=== PATIENT | male | born 1975 | race Hispanic/Latino ===

== ENCOUNTER 2019-09-19 18:32 | Emergency (ER) | payer BC ==
[2019-09-19 19:19] LABS: Urine Blood TRACE (NEG); Urine Glucose NEGATIVE (NEG); Urine Protein NEGATIVE (NEG)
[2019-09-19] MEDS ORDERED: NA CHLORIDE 0.9% 500 ML ONE (19:20)
[2019-09-19 20:19] LABS: Absolute Lymphocytes (CBC) 1.3 K/uL (0.7-4.9); Albumin 3.5 g/dL (3.4-5.0); Basophils % 0.4 % (0-1.3); Bilirubin Direct 0.1 mg/dL (0-0.2); Bilirubin Total 0.5 mg/dL (0.2-1.0); Hematocrit 39.8 % (39.6-49.0); Lymphocytes % 14.4 % (15.3-44.8); MPV 7.3 fL (7.6-11.3); Potassium 3.6 mmol/L (3.5-5.1); Protein, Total 7.9 g/dL (6.4-8.2); RBC Red Blood Cell Count 4.88 M/uL (4.33-5.43)
--- NOTE | 2019-09-19 20:52 | RAD REPORT ---
EXAM DESCRIPTION: CT - Abdomen Pelvis Wo Contrast - 09/19/2019 8:37 pm CLINICAL HISTORY: ABD PAIN , left-sided abdominal pain, left flank pain COMPARISON: No comparisons TECHNIQUE: Axial [address] imaging of the abdomen and pelvis was performed without IV contrast. No IV contrast was given because of allergy, abnormal renal function, patient refusal or physician re quest. No oral contrast administered. All CT scans are performed using dose optimization technique as appropriate and may include automated exposure control or mA/KV adjustment according to patient size. FINDINGS: No suspicious findings in the lung bases. Fatty infiltration is present throughout the liver. Liver size is upper normal. No focal liver lesion s seen. Spleen and pancreas show no suspicious findings. A 2.8 centimeter gallstone is present within a partially contracted gallbladder. No biliary tree dilatation. No right-sided hydronephrosis or right-sided calculus. Patient has mild left-sided hydronephrosis adilene n to the UVJ level. There are no obstructing or nonobstructing calculi identifiable. Left kidney is s lightly edematous when compared with the right. No significant adrenal finding. Isodense renal daysi s and pyelonephritis cannot be excluded in the absence of IV contrast. Urinary bladder is mostly cont racted limiting detail. No bladder calculus seen. There is subtle fullness or thickening of the bladd er wall near the UVJ. This could be bladder wall edema. , small sandlike stone would be possible. A s mall mass or ureterocele could be isodense on a noncontrast study. No dilated bowel loops or bowel wall thickening. No free air, free fluid or inflammatory stranding. No hernia, mass or bulky lymphadenopathy. No suspicious bony findings. IMPRESSION: Mild left-sided hydronephrosis is present without a clearly identifiable obstructing kylie culus. There is subtle fullness of the bladder wall at the UVJ. This could be wall edema from a recently pas sed stone. Patient could have a small sandlike stone in this region. Ureterocele or bladder mass parminder ot be excluded. Full assessment is limited is the absence of IV contrast. No abnormality of the right kidney or right collecting system. No acute GI finding. Fatty infiltration of the liver. Incidental cholelithiasis.
--- NOTE | 2019-09-19 21:18 | ER ---
Nurse's Notes [facility] Name: Rashid Ramos Age: 44 yrs Sex: Male : 1975 Arrival Date: 09/19/2019 Time: 18:38 Bed 15 Private MD: Diagnosis: Abdominal and pelvic pain Presentation: 09/18 18:53 Chief complaint: Patient states: L sided abd pain that radiates towards L flank x 2 ss days with nausea. Coronavirus screen: The patient has NOT traveled to a country currently being monitored by the [facility] within the last 14 days. Proceed with normal triage procedures. Ebola Screen: Patient denies exposure to infectious person. Patient denies travel to an Ebola-affected area in the 21 days before illness onset. Initial Sepsis Screen: Does the patient meet any 2 criteria? No. Patient's initial sepsis screen is negative. Does the patient have a suspected source of infection? No. Patient's initial sepsis screen is negative. Risk Assessment: Do you want to hurt yourself or someone else? Patient reports no desire to harm self or others. 18:53 Method Of Arrival: Ambulatory ss 18:53 Acuity: ELEUTERIO 3 ss Historical: - Allergies: 18:56 No Known Allergies; ss - Home Meds: 18:56 Lisinopril Oral [Active]; ss - PMHx: 18:56 Hypertension; ss - PSHx: 18:56 None; ss - Immunization history:: Adult Immunizations up to date. - Social history:: Smoking status: Patient denies any tobacco usage or history of. Screenin:15 Abuse screen: Denies threats or abuse. Denies injuries from another. Nutritional aa1 screening: No deficits noted. Tuberculosis screening: No symptoms or risk factors identified. Fall Risk None identified. Assessment: 19:15 General: Appears in no apparent distress. comfortable, Behavior is calm, cooperative, aa1 appropriate for age. Pain: Complains of pain in anterior aspect of left lateral abdomen and left upper quadrant Pain radiates to left low back Pain began 1 day ago. Neuro: Level of Consciousness is awake, alert, obeys commands, Oriented to person, place, time, situation, Moves all extremities. Full function Gait is steady, Speech is normal. Respiratory: Airway is patent Respiratory effort is even, unlabored, Respiratory pattern is regular, symmetrical. GI: Abdomen is round Abd is soft X 4 quads Abdomen is tender to palpation in left upper quadrant Reports upper abdominal pain, nausea, vomiting. : Reports pain in left flank(s). EENT: No signs and/or symptoms were reported regarding the EENT system. Derm: Skin is intact, is healthy with good turgor, Skin is pink, warm \T\ dry. Musculoskeletal: Circulation, motion, and sensation intact. Capillary refill < 3 seconds. 20:10 Reassessment: Patient appears in no apparent distress at this time. Patient and/or aa1 family updated on plan of care and expected duration. Pain level reassessed. Patient is alert, oriented x 3, equal unlabored respirations, skin warm/dry/pink. Awaiting lab results \T\ CT scan. 21:08 Reassessment: Patient appears in no apparent distress at this time. Patient and/or aa1 family updated on plan of care and expected duration. Pain level reassessed. Patient is alert, oriented x 3, equal unlabored respirations, skin warm/dry/pink. Awaiting CT results. 21:44 Reassessment: Patient appears in no apparent distress at this time. Patient is alert, aa1 oriented x 3, equal unlabored respirations, skin warm/dry/pink. Discussed d/c \T\ f/u instructions with pt \T\ significant other; denies questions or concerns at this time. Ambulatory to lobby with steady gait. Vital Signs: 18:52 BP 145 / 76; Pulse 89; Resp 16; Temp 97.8(O); Pulse Ox 100% on R/A; Weight 145.15 kg; Height 5 ft. 10 in. (177.80 cm); Pain 5/10; 19:45 BP 122 / 75; Pulse 82; Resp 16; Pulse Ox 99% on R/A; aa1 21:00 BP 140 / 54; Pulse 80; Resp 18; Pulse Ox 100% on R/A; aa1 18:52 Body Mass Index 45.91 (145.15 kg, 177.80 cm) ED Course: 18:38 Patient arrived in ED. mr 18:52 Arm band placed on right wrist. ss 18:54 Marciano Vivar FNP-C is [facility]. la1 18:54 Joel Mcgee MD is Attending Physician. la1 18:55 Triage completed. ss 19:00 Melissa Roach, RN is Primary Nurse. aa1 19:15 Patient has correct armband on for positive identification. Placed in gown. Bed in low aa1 position. Call light in reach. Pulse ox on. NIBP on. 19:30 Urine collected: clean catch specimen, althea colored. aa1 19:45 Missed attempt(s): 20 gauge Bleeding controlled, band aid applied, catheter tip intact. oe 19:50 Initial lab(s) drawn, by me, sent to lab. Inserted saline lock: 20 gauge in right aa1 antecubital area, using aseptic technique. Blood collected. 19:56 Missed attempt(s): 20 gauge forearm. Bleeding controlled, band aid applied, catheter dh4 tip intact. 20:40 Abdomen In Process Unspecified. EDMS 21:44 No provider procedures requiring assistance completed. IV discontinued, intact, aa1 bleeding controlled, No redness/swelling at site. Pressure dressing applied. Administered Medications: 19:56 Drug: NS 0.9% 500 ml Route: IV; Rate: bolus; Site: right antecubital; aa1 21:00 Follow up: IV Status: Completed infusion; IV Intake: 500ml aa1 21:42 Drug: TORadol - Ketorolac 15 mg Route: IVP; Site: right antecubital; aa1 21:43 Follow up: Response: No adverse reaction; Medication administered at discharge. aa1 21:42 Drug: Zofran (Ondansetron) 4 mg Route: IVP; Site: right antecubital; aa1 21:43 Follow up: Response: No adverse reaction; Medication administered at discharge. aa1 Intake: 21:00 IV: 500ml; Total: 500ml. aa1 Outcome: 21:17 Discharge ordered by . la1 21:44 Discharged to home ambulatory, with significant other. aa1 21:44 Condition: good 21:44 Discharge instructions given to patient, significant other, Instructed on discharge instructions, follow up and referral plans. medication usage, Demonstrated understanding of instructions, follow-up care, medications, Prescriptions given X 2. 21:46 Patient left the ED. aa1 Signatures: Dispatcher [employer] EDMS Melissa Roach RN RN aa1 Landy Bliss Shelby, RN RN Marciano Vivar, DISPATCHER SERVICE OR WORK-C DISPATCHER SERVICE OR WORK-Cla1 Tray Newberry, Jeffrey dh4
--- NOTE | 2019-09-19 21:18 | EDPHYS ---
Physician Documentation [facility] Name: Rashid Ramos Age: 44 yrs Sex: Male : 1975 Arrival Date: 09/19/2019 Time: 18:38 Bed 15 Private MD: ED Physician Joel Mcgee HPI: 09/18 21:01 This 44 yrs old Male presents to ER via Ambulatory with complaints of la1 Abdominal Pain. 21:01 The patient presents with abdominal pain in the left lower quadrant. Onset: The la1 symptoms/episode began/occurred 2 day(s) ago. The symptoms do not radiate. Associated signs and symptoms: Pertinent negatives: nausea, vomiting, and diarrhea, blood in stools, chest pain, constipation, diarrhea, dysuria, fever. The symptoms are described as sharp. Modifying factors: The symptoms are alleviated by nothing, the symptoms are aggravated by nothing. Severity of pain: At its worst the pain was moderate. The patient has not experienced similar symptoms in the past. Historical: - Allergies: 18:56 No Known Allergies; ss - Home Meds: 18:56 Lisinopril Oral [Active]; ss - PMHx: 18:56 Hypertension; ss - PSHx: 18:56 None; ss - Immunization history:: Adult Immunizations up to date. - Social history:: Smoking status: Patient denies any tobacco usage or history of. ROS: 21:02 Constitutional: Negative for fever, chills, and weight loss, Eyes: Negative for injury, la1 pain, redness, and discharge, ENT: Negative for injury, pain, and discharge, Neck: Negative for injury, pain, and swelling, Cardiovascular: Negative for chest pain, palpitations, and edema, Respiratory: Negative for shortness of breath, cough, wheezing, and pleuritic chest pain. 21:02 Back: Negative for injury and pain, : Negative for injury, bleeding, discharge, and swelling, MS/Extremity: Negative for injury and deformity, Neuro: Negative for headache, weakness, numbness, tingling, and seizure. 21:02 Abdomen/GI: Positive for abdominal pain, nausea. Exam: 21:03 Constitutional: This is a well developed, well nourished patient who is awake, alert, la1 and in no acute distress. Head/Face: Normocephalic, atraumatic. Eyes: Pupils equal round and reactive to light, extra-ocular motions intact. Lids and lashes normal. Conjunctiva and sclera are non-icteric and not injected. Cornea within normal limits. Periorbital areas with no swelling, redness, or edema. ENT: . Mucous membranes moist. Neck: Trachea midline, Chest/axilla: Normal chest wall appearance and motion. Nontender with no deformity. No lesions are appreciated. Cardiovascular: Regular rate and rhythm with a normal S1 and S2. No gallops, murmurs, or rubs. Normal PMI, no JVD. No pulse deficits. Respiratory: Lungs have equal breath sounds bilaterally, clear to auscultation Abdomen/GI: Soft, non-tender, with normal bowel sounds. No distension or tympany. No guarding or rebound. No evidence of tenderness throughout. Back: No spinal tenderness. No costovertebral tenderness. Full range of motion. Skin: Warm, dry with normal turgor. Normal color with no rashes, no lesions, and no evidence of cellulitis. Vital Signs: 18:52 BP 145 / 76; Pulse 89; Resp 16; Temp 97.8(O); Pulse Ox 100% on R/A; Weight 145.15 kg; ss Height 5 ft. 10 in. (177.80 cm); Pain 5/10; 19:45 BP 122 / 75; Pulse 82; Resp 16; Pulse Ox 99% on R/A; aa1 21:00 BP 140 / 54; Pulse 80; Resp 18; Pulse Ox 100% on R/A; aa1 18:52 Body Mass Index 45.91 (145.15 kg, 177.80 cm) ss MDM: 18:57 Patient medically screened. la1 21:15 Data reviewed: vital signs, nurses notes, lab test result(s), radiologic studies, I la1 have discussed the patient's presentation/case with the attending Emergency Department Physician; and as a result, I will discharge patient. Data interpreted: Pulse oximetry: on room air is 100 %. Interpretation: normal. Counseling: I had a detailed discussion with the patient and/or guardian regarding: the historical points, exam findings, and any diagnostic results supporting the discharge/admit diagnosis, lab results, radiology results, the need for outpatient follow up, a urologist. Special discussion: Based on the history and exam findings, there is no indication for further emergent testing or inpatient evaluation. I discussed with the patient/guardian the need to see the urologist for further evaluation of the symptoms. ED course: pt pain is under control, at this time based on the presence of blood in the urine and the CT findings I believe the pt recently passed a kidney stone. Strict return precautions given, informed of the fatty liver, renal function, and gall stone.. 09/18 19:06 Order name: Basic Metabolic Panel; Complete Time: 20:43 mi09/18 19:06 Order name: CBC with Diff; Complete Time: 20:43 mi09/18 19:06 Order name: Creatinine for Radiology; Complete Time: 20:43 mi09/18 19:06 Order name: Hepatic Function; Complete Time: 20:43 mi09/18 19:06 Order name: Lipase; Complete Time: 20:43 mi09/18 19:17 Order name: Urine Dipstick--Ancillary (enter results); Complete Time: 20:43 [facility] 09/18 19:06 Order name: IV Saline Lock; Complete Time: 19:56 09/18 19:06 Order name: Labs collected and sent; Complete Time: 19:56 mi09/18 19:06 Order name: Urine Dipstick-Ancillary (obtain specimen); Complete Time: 19:14 mi09/18 20:25 Order name: Abdomen ; Complete Time: 20:58 EDMS Administered Medications: 19:56 Drug: NS 0.9% 500 ml Route: IV; Rate: bolus; Site: right antecubital; aa1 21:00 Follow up: IV Status: Completed infusion; IV Intake: 500ml aa1 21:42 Drug: TORadol - Ketorolac 15 mg Route: IVP; Site: right antecubital; aa1 21:43 Follow up: Response: No adverse reaction; Medication administered at discharge. aa1 21:42 Drug: Zofran (Ondansetron) 4 mg Route: IVP; Site: right antecubital; aa1 21:43 Follow up: Response: No adverse reaction; Medication administered at discharge. aa1 Disposition: 09/19 07:04 Co-signature as Attending Physician, Joel Mcege MD I agree with the assessment and kdr plan of care. Disposition: 09/19/19 21:17 Discharged to Home. Impression: Abdominal and pelvic pain. - Condition is Stable. - Discharge Instructions: Kidney Stones, Abdominal Pain, Adult, [id number]. - Prescriptions for Zofran 4 mg Oral Tablet - take 1 tablet by ORAL route every 12 hours As needed; 6 tablet. Flomax 0.4 mg Oral Capsule, Sust. Release 24 hr - take 1 capsule by ORAL route once daily for 7 days 1/2 hour following the same meal each day; 7 capsule. - Work release form, Medication Reconciliation Form, Thank You Letter form. - Follow up: Private Physician; When: 2 - 3 days; Reason: Recheck today's complaints, Re-evaluation by your physician. - Problem is new. - Symptoms have improved. Signatures: Dispatcher [employer] [facility] Melissa Roach RN RN aa1 Joel Mcgee MD MD kdr Nesha Hooks RN RN ss Ghazala, Marciano, POWER BENDER OPERATOR-C POWER BENDER OPERATOR-Cla1 Corrections: (The following items were deleted from the chart) 09/18 20:25 19:07 Abdomen Pelvis W [id number] ordered. [facility] 21:46 21:17 09/19/2019 21:17 Discharged to Home. Impression: Abdominal and pelvic pain. aa1 Condition is Stable. Forms are Medication Reconciliation Form, Thank You Letter, Antibiotic Education, Prescription Opioid Use. Follow up: Private Physician; When: 2 - 3 days; Reason: Recheck today's complaints, Re-evaluation by your physician. Problem is new. Symptoms have improved. la1
[2019-09-19] MEDS ORDERED: ONDANSETRON 4 MG/2 ML VIAL ONE (21:30)
[2019-09-19] MEDS ORDERED: KETOROLAC 30 MG/ML INJ ONE (21:30)
[2019-09-19 21:53] VITALS: TEMP 97.8
[2019-09-19 21:56] VITALS: BP 140/54; O2SAT 100
== END 2019-09-19 21:46 | disposition home or self-care (01) ==
LOC: ER 18:32
DX: R10.2 Pelvic and perineal pain (principal); I10 Essential (primary) hypertension
CPT/HCPCS: 96361; 85025; 80048; 36415; 80076; 81003; 83690; 74176; 96375; 96374; 99284; J7040; J2405